=== PATIENT | female | born 1940 | race Caucasian/White ===

== ENCOUNTER 2019-05-19 05:51 | Day surgery (SDC) | payer BC ==
[2019-05-13 14:46] LABS: BASOPHILS % (AUTO) 0.4 % (0-1); EOSINOPHILS # (AUTO) 0.1 X10'3 (0-0.9); EOSINOPHILS % (AUTO) 1.2 % (0-6); LYMPHOCYTES # (AUTO) 2.3 X10'3 (1.1-4.8); MEAN CORPUSCULAR HEMOGLOBIN 30.7 PG (27.0-31.0); MEAN CORPUSCULAR HGB CONC 33.4 g/dL (33.0-36.5); MEAN CORPUSCULAR VOLUME 91.9 FL (78-98); MEAN PLATELET VOLUME 10.8 FL (7.4-10.4); MONOCYTES # (AUTO) 0.4 X10'3 (0-0.9); MONOCYTES % (AUTO) 7.7 % (2-12); NEUTROPHILS # (AUTO) 2.8 X10'3 (1.8-7.7); NEUTROPHILS % (AUTO) 49.7 % (42-75); PRE OP HEMATOCRIT 38.6 % (35.0-45.0); PRE OP HEMOGLOBIN 12.9 g/dL (12.0-16.0); PRE OP PLATELET COUNT 212 X10'3 (140-440); RED CELL DISTRIBUTION WIDTH 13.7 % (11.5-14.5)
[2019-05-13 14:48] LABS: CLARITY,URINE CLEAR (Clear); COLOR,URINE YELLOW (Yellow); GLUCOSE, URINE NEGATIVE (Neg); KETONES,URINE TRACE mg/dl (Neg); LEUKOCYTE ESTERASE ,URINE NEGATIVE (Neg); NITRITES, URINE NEGATIVE (Neg); OCCULT BLOOD,URINE NEGATIVE (Neg); PROTEIN,URINE NEGATIVE (Neg)
[2019-05-13 14:51] LABS: UA COLLECTION TYPE CLN CATCH MIDSTREAM
[2019-05-13 14:57] LABS: PRE OP PROTIME 9.9 SECONDS (9.0-12.0)
[2019-05-13 15:21] LABS: ALBUMIN 3.5 G/DL (3.4-5.0); ALKALINE PHOSPHATASE 89 IU/L (46-116); BLOOD UREA NITROGEN 15 MG/DL (7-18); BUN/CREATININE RATIO 13.5 (6.6-38.0); CALCIUM 8.2 MG/DL (8.5-10.1); CHLORIDE 107 MMOL/L (99-107); CREATININE 1.11 MG/DL (0.40-0.90); PRE OP ALT 26 U/L (30-65); PRE OP ANION GAP 8 (8-16); PRE OP AST 19 U/L (10-37); PRE OP BILIRUB, TOTAL 0.3 MG/DL (0.0-1.0); PRE OP GLUCOSE 96 MG/DL (70-104); PRE OP POTASSIUM 3.6 MMOL/L (3.4-5.1); PRE OP SODIUM 146 MMOL/L (135-145); TOTAL CARBON DIOXIDE 31.4 MMOL/L (24-32); TOTAL PROTEIN 7.1 G/DL (6.4-8.2); eGFR 47 ML/MIN
[2019-05-13 16:17] LABS: LARGE PLATELETS FEW; PLATELET ESTIMATE NORMAL
[~2019-05-19] VITALS: Ht 162.6 cm; Wt 64.9 kg
[2019-05-19] VITALS (18 sets, daily range): BP systolic 126–215; BP diastolic 50–94
[~2019-05-19 05:51] MED LIST: ASPI81TA44 PO; CALC-1233 PO; CHOL400T14 PO; CYAN250014 PO; DULO60CA45 PO; ESTR10IN VG; FISH12002 PO; LOVA20TA2 PO; MULT1TAB74 PO; ceFOXitin 2 GM ADDvantage bag 100 ML IV ONE; famotidine 10mg tablet PO ONE; ringers solution, lacted 1,000 ML IV SCH
[2019-05-19] MEDS ORDERED: LIDOcaine 1% (10mg/ml) 2ml vial ONE (06:32)
[2019-05-19] MEDS ORDERED: clindamycin phosphate 40gm vag cream ONE (06:40)
[2019-05-19] MEDS ORDERED: morphine 10mg/ml inj. ONE (06:40)
[2019-05-19] MEDS ORDERED: LIDOcaine 1% 30ml preserv. free vial ONE (06:41)
[2019-05-19] MEDS ORDERED: ceFAZolin 1000mg inj ONE (06:41)
[2019-05-19] MEDS ORDERED: BUPIVAcaine/PF 2.5 mg/ml (0.25%) 30ml vial ONE (06:41)
[2019-05-19] MEDS ORDERED: vasoPRESSIN 20 units/ml inj. ONE (06:41)
[2019-05-19] MEDS ORDERED: midazolam 2 mg/2 ml injection ONE (08:05)
[2019-05-19] MEDS ORDERED: sevoflurane 250ml liquid IH ONE (08:15)
[2019-05-19] MEDS ORDERED: acetaminophen 1000 MG/100ml vial IV ONE (08:15)
[2019-05-19] MEDS ORDERED: fentaNYL /PF 50mcg/ml 5ml ampule ONE (08:38)
[2019-05-19] MEDS ORDERED: LIDOcaine 2% (20mg/ml) 5ml vial ONE (08:54)
[2019-05-19] MEDS ORDERED: dexamethasone sod phosphate 4mg/ml inj. ONE (08:54)
[2019-05-19] MEDS ORDERED: rocuronium 10mg/ml inj IV ONE (08:54)
[2019-05-19] MEDS ORDERED: ondansetron/PF 4mg/2ml inj ONE (08:54)
[2019-05-19] MEDS ORDERED: propofol inj 20 ML IV ONE (08:54)
[2019-05-19] MEDS ORDERED: ringers solution, lacted 1,000 ML IV SCH (10:01)
[2019-05-19] MEDS ORDERED: hydrALAZINE 20mg/ml inj. IV PRN (10:05)
[2019-05-19] MEDS ORDERED: morphine 4 MG/ML inj SYRINge IV PRN ×2 (10:05)
[2019-05-19] MEDS ORDERED: labetalol 20mg/4ml (5mg/ml) syringe IV PRN (10:05)
[2019-05-19] MEDS ORDERED: proCHLORperazine 10 MG/2 ml inj IV PRN (10:05)
[2019-05-19] MEDS ORDERED: ondansetron/PF 4mg/2ml inj IV PRN ×2 (10:05→10:55)
[2019-05-19] MEDS ORDERED: fentaNYL/PF 50MCG/1 ML 2ML syringe IV PRN ×2 (10:05)
[2019-05-19] MEDS ORDERED: meperidine/PF 25mg/ml syringe IV PRN (10:05)
[2019-05-19] MEDS ORDERED: neostigmine methylsulfate 1 MG/ML 10ml vial ONE (10:40)
[2019-05-19] MEDS ORDERED: fluoroscein sod 10% (100mg/ml) 5ml vial ONE (10:40)
[2019-05-19] MEDS ORDERED: glycopyrrolate 0.2mg/ml inj ONE (10:40)
[2019-05-19] MEDS ORDERED: normal saline 500ml IV soln 500 ML IV PRN (10:55)
[2019-05-19] MEDS ORDERED: temazepam 15mg capsule PO PRN (10:55)
[2019-05-19] MEDS ORDERED: HYDROcodone/acetaminophen 5mg/325mg tablet PO PRN ×2 (10:55)
[2019-05-19] MEDS ORDERED: naloxone 0.4 mg/ml inj IV PRN (10:55)
[2019-05-19] MEDS ORDERED: LORazepam 2 mg/ml vial IV PRN (10:55)
[2019-05-19] MEDS ORDERED: CADD PCA waste documentation MC PRN (10:55)
[2019-05-19] MEDS ORDERED: ketorolac tromethamine 15mg/ml inj. IV PRN (10:55)
--- NOTE | 2019-05-19 11:10 | NUR ---
Received from OR via BED , accompanied by Anesthesiologist DR WATTS and report given by Anesthesiolgist. PATIENT SEDATED, NO S/S OF PAIN, V/S WNL, NEUROVASCULAR CHECKS INTACT, 20G PIV LUE, SCD ON, BANDAIDS TO ABDOMEN LAP SITES CDI AND LEEANN PAD WITH VAG PACKING W/ NO COMPLICATIONS OBSERVED AT THIS TIME. F/C DRAINING CLEAR URINE.
--- NOTE | 2019-05-19 11:33 | NUR ---
PATIENT HTN, MEDS GIVEN SEE EMAR
[2019-05-19] MEDS: HYDROmorphone/NS 1 mg/ml CADD 50 ML IV SCH ×7 (11:40→23:00)
--- NOTE | 2019-05-19 11:47 | NUR ---
B/P HTN RESOLVING AND PATIENT EXTUBATED WITHOUT COMPLICATIONS.
--- NOTE | 2019-05-19 12:10 | NUR ---
PATIENT ORIENTED X4 BUT SLEEPY, DENIES PAIN, V/S WNL, NEUROVASCULAR CHECKS INTACT, 20G PIV LUE, SCD ON, BANDAIDS TO ABDOMEN LAP SITES CDI AND LEEANN PAD WITH VAG PACKING W/ NO COMPLICATIONS OBSERVED AT THIS TIME. F/C DRAINING CLEAR URINE.[employer] OPERATIONS SPECIALIST SET UP STANDARD SETTINGS. PATIENT WILL NEED REINFORCEMENT TEACHING ON THIS. PATIENT TAKEN TO 344B WITH ALL BELONGINGS AND HOOKED UP TO MONITORS IN ROOM AND REPORT GIVEN TO RN WHO HAS TAKEN OVER PATIENT CARE.
--- NOTE | 2019-05-19 12:20 | NUR ---
Received report from BEKA Wheat. Patient arrived to floor. VSS. no complaints. three family members at bedside.
[2019-05-19] MEDS: ringers solution, lacted 1,000 ML IV SCH ×2 (12:39→15:28)
[2019-05-19] MEDS: simethicone 80mg chew tab PO SCH ×2 (13:42→17:11)
--- NOTE | 2019-05-19 17:00 | NUR ---
Patient c/o having to pee. wisdom catheter is in and draining appropriately. Bladder scan completed and the patient is not retaining. will continue to monitor.
--- NOTE | 2019-05-19 18:12 | NUR ---
Problems reprioritized. Patient report given, questions answered & plan of care reviewed with Droa John RN.
--- NOTE | 2019-05-19 18:30 | NUR ---
Patient in room [facility]. I have received report from JUSTIN IRELAND and had the opportunity to ask questions and assume patient care.
[2019-05-19] MEDS: docusate sod 100mg capsule PO SCH (20:51)
[2019-05-19] MEDS ORDERED: atorvastatin 10mg tablet PO SCH (21:00)
[2019-05-19] MEDS ORDERED: duloxetine 30mg CAPSULE.DR PO SCH (21:00)
[2019-05-20 00:18] VITALS: BP 135/45
[2019-05-20] MEDS: HYDROmorphone/NS 1 mg/ml CADD 50 ML IV SCH ×7 (01:00→13:00)
[2019-05-20] MEDS: ringers solution, lacted 1,000 ML IV SCH ×2 (01:15→09:36)
[2019-05-20 04:52] LABS: BASOPHILS % (AUTO) 0.2 % (0-1); EOSINOPHILS % (AUTO) 0 % (0-6); HEMATOCRIT 33.7 % (35.0-45.0); LYMPHOCYTES # (AUTO) 1.1 X10'3 (1.1-4.8); LYMPHOCYTES % (AUTO) 10.1 % (21-51); MEAN CORPUSCULAR HEMOGLOBIN 30.3 PG (27.0-31.0); MEAN CORPUSCULAR HGB CONC 32.8 g/dL (33.0-36.5); MEAN CORPUSCULAR VOLUME 92.5 FL (78-98); MEAN PLATELET VOLUME 10.5 FL (7.4-10.4); MONOCYTES # (AUTO) 0.9 X10'3 (0-0.9); MONOCYTES % (AUTO) 8.4 % (2-12); NEUTROPHILS # (AUTO) 9.2 X10'3 (1.8-7.7); NEUTROPHILS % (AUTO) 81.3 % (42-75); PLATELET COUNT 194 X10'3 (140-440); RED BLOOD COUNT 3.64 X10'6 (4.20-5.60); RED CELL DISTRIBUTION WIDTH 13.9 % (11.5-14.5); WHITE BLOOD COUNT 11.3 X10'3 (4.5-11.0)
--- NOTE | 2019-05-20 06:21 | NUR ---
Problems reprioritized. Patient report given, questions answered & plan of care reviewed with MAC IRELAND.
--- NOTE | 2019-05-20 06:23 | NUR ---
Patient in room [facility]. I have received report from Rani IRELAND and had the opportunity to ask questions and assume patient care.
[2019-05-20] MEDS: docusate sod 100mg capsule PO SCH (07:29)
[2019-05-20] MEDS: simethicone 80mg chew tab PO SCH ×2 (07:29→12:45)
[2019-05-20 08:42] VITALS: BP 147/55
[2019-05-20 12:00] VITALS: BP 145/50
--- NOTE | 2019-05-20 12:03 | NUR ---
Pt voided 150ml of clear urine at 0930 bladder scan showed 273ml in bladder. Pt ambulated and void another 200ml at 1200; bladder scan showed 263ml pt refused to place wisdom cath. voided another 100ml at 1215. will do another bladder scan and continue to monitor.
--- NOTE | 2019-05-20 17:18 | NUR ---
Pt D/C'd home in stable condition. Pt voiding well over 1000ml of clear urine collected. Discharge and medication instructions given to pt. IV removed. pt was escorted to main lobby on Wheel chair. Left this hospital accompanied by via private vehicle.
== END 2019-05-20 17:05 | disposition home or self-care (01) ==
LOC: PAS 05:51 → SUR 3N 10:55 → PAS 05-20 17:05
PROVIDERS: ATTEND Specialist
DX: N81.4 Uterovaginal prolapse, unspecified (principal); N85.8 Other specified noninflammatory disorders of uterus; N88.8 Other specified noninflammatory disorders of cervix uteri; N39.3 Stress incontinence (female) (male); K66.0 Peritoneal adhesions (postprocedural) (postinfection); F32.9 Major depressive disorder, single episode, unspecified; M19.90 Unspecified osteoarthritis, unspecified site; M81.0 Age-related osteoporosis without current pathological fracture; Z98.890 Other specified postprocedural states; Z98.49 Cataract extraction status, unspecified eye; Z79.899 Other long term (current) drug therapy
CPT/HCPCS: 36415; 57240; 57288; 57425; 58552; 80053; 81003; 82948; 85025; 85610; 85730; 86885; 86900; 86901; C1771; J0131; J0360; J0690; J0694; J1100; J1170; J2001; J2250; J2270; J2405; J2704; J2710; J3010; J3490; J7120; A4215; A4314; A4355; A4618; A6250; A7000; G0378